=== PATIENT | male | born 1960 | race Caucasian/White ===

== ENCOUNTER 2017-12-30 20:12 | Inpatient (IN) | payer OTHER ==
[2017-12-30 21:18] LABS: % BASOPHILS 0.8 % (0.0-2.0); % EOSINOPHILS 1.9 % (0.0-5.0); % LYMPHOCYTES 18.9 % (20.0-50.0); % MONOCYTES 4.5 % (2.0-10.0); % NEUTROPHILS 73.9 % (40.0-80.0); BASOPHILE ABSOLUTE 0.1 Th/cumm (0-0.2); EOSINOPHILE ABSOLUTE 0.2 Th/cmm (0.1-0.4); HEMATOCRIT 24.8 % (41.0-60); LYMPHOCYTE ABSOLUTE 2.4 Th/cmm (1.5-3.0); MEAN CELL VOLUME 85.7 fl (80-99); MEAN CORPUSCULAR HEMOGLOBIN 27.7 pg (26.0-30.0); MEAN CORPUSCULAR HGB CONC 32.4 pg (28.0-36.0); MEAN PLATELET VOLUME 7.5 fl; MONOCYTE ABSOLUTE 0.6 Th/cmm (0.3-1.0); NEUTROPHILE ABSOLUTE 9.4 Th/cmm (1.8-8.0); PLATELET COUNT 632 Th/cmm (150-400); RED CELL DISTRIBUTION WIDTH 15.6 % (11.5-20.0)
[2017-12-30 21:20] LABS: WHITE BLOOD COUNT 12.7 Th/cmm (4.8-10.8)
[2017-12-30 21:22] LABS: ALLEN TEST Positive; pH 7.44 (7.35-7.45)
[2017-12-30 21:24] LABS: pH 7.44 (7.35-7.45)
[2017-12-30 21:25] LABS: ALLEN TEST Positive
[2017-12-30 21:30] LABS: INR 0.94 (0.5-1.4); PROTHROMBIN TIME (TEST) 9.8 SECONDS (9.5-11.5)
--- NOTE | 2017-12-30 21:48 | ED Physician Chart ---
ED Chief Complaint/HPI - Patient Information Date Seen:: 12/30/17 Time Seen:: 20:30 Chief Complaint:: PNEUMONIA History of Present Illness:: THIS IS A 57 YR OLD MALE SENT FROM A CUSTODIAL WITH A DIAGNOSIS PNEUMONIA FOR MORE DEFINITIVE CARE FOR HIS CONDITION. THE PATIENT HAS BEEN HAVING DIFFICULTY BREATHING WITH INCREASE WEAKNESS. Allergies:: Allergies Allergy/AdvReac Type Severity Reaction Status Date / Time No Known Allergies Allergy Verified 12/30/17 20:39 Vitals:: Vital Signs - 8 hr 12/30/17 20:15 Temp 98.1 F HR 97 RR 20 BP 110/77 O2 Sat % 97 Historian:: Patient Review:: Nurse's Note Reviewed ED Review of Systems - Review of Systems General/Constitutional: No fever, No chills, No weight loss, No weakness, No diaphoresis, No edema, No loss of appetite Skin: No skin lesions, No rash, No bruising Head: No headache, No light-headedness Eyes: No loss of vision, No pain, No diplopia ENT: No earache, No nasal drainage, No sore throat, No tinnitus Neck: No neck pain, No swelling, No thyromegaly, No stiffness, No mass noted Cardio Vascular: No chest pain, No palpitations, No PND, No orthopnea, No edema Pulmonary: SOB, Cough, No sputum, No wheezing GI: No nausea, No vomiting, No diarrhea, No pain, No melena, No hematochezia, No constipation, No hematemesis G/U: No dysuria, No frequency, No hematuria Musculoskeletal: No bone or joint pain, No back pain, No muscle pain Endocrine: No polyuria, No polydipsia Psychiatric: No prior psych history, No depression, No anxiety, No suicidal ideation Hematopoietic: No bruising, No lymphadenopathy Allergic/Immuno: No urticaria, No angioedema Neurological: No syncope, No focal symptoms, No weakness, No paresthesia, No headache, No seizure, No dizziness, No confusion, No vertigo ED Past Medical History - Past Medical History Obtainable: Yes Past Medical History: HTN, DM, Asthma/COPD Family History: None Social History: Non Smoker, No Alcohol, No Drug Use, Care Facility Surgical History: None Psychiatricy History: None Medication: Reviewed Family Medical History - Family Member Mother History Unknown: Yes ED Physical Exam - Physical Examination General/Constitutional: Awake, Well-developed, well-nourished, Alert, No distress, GCS 15, Non-toxic appearing, Ambulatory Head: Atraumatic Eyes: Lids, conjuctiva normal, PERRL, EOMI Skin: Nl inspection, No rash, No skin lesions, No ecchymosis, Well hydrated, No lymphadenopathy Other Skin comments:: CELLULITIS OF THE RIGHT FOOT ENMT: External ears, nose nl, Nasal exam nl, Lips, teeth, gums nl Neck: Nontender, Full ROM w/o pain, No JVD, No nuchal rigidity, No bruit, No mass, No stridor Respiratory: Nl effort/Exclusion, Clear to Auscultation (THERE ARE DECREASED BILATERAL LOWER LUNG SOUNDS.), No Wheeze/Rhonchi/Rales Cardio Vascular: RRR, No murmur, gallop, rubs, NL S1 S2 GI: No tenderness/rebounding/guarding, No organomegaly, No hernia, Normal BS's, Nondistended, No mass/bruits, No McBurney tenderness : No CVA tenderness, NL external genitalia (THERE IS EDEMA OF THE SCROTAL AREA.) Extremities: No tenderness or effusion, Full ROM, normal strength in all extremities, No edema, Normal digits & nails Other Extremities comments:: THE RIGHT IS SWOLLEN AND RED. Neuro/Psych: Alert/oriented, DTR's symmetric, Normal sensory exam, Normal motor strength, Judgement/insight normal, Mood normal, Normal gait, No focal deficits Misc: Normal back, No paraspinal tenderness ED Labs/Radiology/EKG Results - Lab Results Results: Laboratory Tests 12/30/17 12/30/17 12/30/17 20:50 20:50 20:50 WBC 12.7 H RBC 2.90 L Hgb 8.0 L Hct 24.8 L MCV 85.7 MCH 27.7 MCHC Differential 32.4 RDW 15.6 Plt Count 632 H MPV 7.5 Neutrophils % 73.9 Lymphocytes % 18.9 L Monocytes % 4.5 Eosinophils % 1.9 Basophils % 0.8 PT 9.8 INR 0.94 Specimen Source Sample Site pH pCO2 pO2 HCO3 Base Excess O2 Saturation Homero Test Vent Rate Inspired O2 Tidal Volume PEEP Pressure (ins/psv/peep) Critical Value Troponin I 0.15 H* 12/30/17 12/30/17 20:50 21:09 WBC RBC Hgb Hct MCV MCH MCHC Differential RDW Plt Count MPV Neutrophils % Lymphocytes % Monocytes % Eosinophils % Basophils % PT INR Specimen Source Arterial Arterial Sample Site Left Radial Right Radial pH 7.44 7.44 pCO2 48.0 H 46.0 H pO2 57.0 L 71.0 L HCO3 30.4 H 29.6 H Base Excess 7.3 H 6.1 H O2 Saturation 90.0 L 95.0 Homero Test Positive Positive Vent Rate NA NA Inspired O2 21% 28 Tidal Volume NA NA PEEP NA NA Pressure (ins/psv/peep) NA NA Critical Value HSTEHNO HSTEHNO Troponin I - EKG Interpretations EKG Time:: 20:39 Rate & Rhythm: RATE= 94, SINUS Emerson: RIGHT AXIS Intervals: NO ECTOPY SEEN ED Assessment - Assessment General Assessment: PNEUMONIA ANEMIA DIABETES MELLITUS INFECTED RIGHT FOOT ED Septic Shock - . Is Septic Shock (SBP<90, OR Lactate>4 mmol\L) present?: No - <6hrs of presentation: Vital Signs: Vital Signs - 8 hr 12/30/17 20:15 Temp 98.1 F HR 97 RR 20 BP 110/77 O2 Sat % 97 ED Reassessment (Disposition) - Reassessment Reassessment Condition:: Unchanged - Diagnosis Diagnosis:: PNEUMONIA ANEMIA ELEVATED TROPONIN - Patient Disposition Discharge/Transfer:: Acute Care w/in this hosp Admitted to:: Telemetry Admitting Medical Physician:: Lazaro Espinal Condition at Disposition:: Unchanged ED Discharge Plan - Patient Disposition Admit/Discharge/Transfer: Acute Care w/in this hosp Condition at Disposition: Unchanged
[2017-12-30 21:50] LABS: ALB/GLOB RATIO 0.6 (1.0-1.8); ALBUMIN 2.7 gm/dL (4.2-5.5); ALKALINE PHOSPHATASE 278 U/L (34-104); ANION GAP 10.6 (7.0-16.0); BILIRUBIN,TOTAL 0.2 mg/dL (0.3-1.0); BUN - UREA NITROGEN 34 mg/dL (7-25); CALCIUM SERUM 8.7 mg/dL (8.6-10.3); CHLORIDE 102 mEq/L (98-107); GFR AFRICAN-AMERICAN > 60.0 ml/min (>90); GFR NON AFRICAN-AMERICAN > 60.0 ml/min; GLUCOSE 215 mg/dL (70-105); POTASSIUM SERUM 4.6 mEq/L (3.5-5.1); SGOT 16 U/L (13-39); SGPT/ALT 68 U/L (7-52); SODIUM SERUM 138 mEq/L (136-145); TOTAL PROTEIN,SERUM 7.2 gm/dL (6.0-8.3)
[2017-12-30] MEDS ORDERED: Azithromycin 500 MG in Sodium Chloride 0.9% 250 ML IV ONE (22:04)
[2017-12-30] MEDS ORDERED: cefTRIAXone 1 GM in Sodium Chloride 0.9% 50 ML IV ONE (22:38)
[2017-12-30] MEDS ORDERED: IOHEXOL 350mgI/mL 100mL Bottle IVP ONE (23:23)
[2017-12-31] MEDS: Albuterol/Ipratropium Neb 3 ML AERS HHN SCH ×3 (07:37→19:07)
[2017-12-31] MEDS ORDERED: Albuterol/Ipratropium Neb 3 ML AERS HHN PRN (07:47)
[2017-12-31] MEDS: INSULIN ASPART SLIDING SCALE 100 UNITS/ML UNIT SUBQ SCH ×4 (08:30→21:16)
[2017-12-31] MEDS ORDERED: Non-Formulary Item 1 EA (Amino Acids/Protein Hydrolys [Pro-Stat Awc Liquid] 30 ML) PO SCH (09:00)
--- NOTE | 2017-12-31 09:00 | History & Physical ---
ADMIT DATE: 12/31/2017 HISTORY OF PRESENT ILLNESS: A 57-year-old presented from [facility] with chief complaint of shortness of breath and bilateral lower extremity edema. He has been short of breath for the last several days. He was started on Lasix in [facility] and while he was on Lasix 40 mg b.i.d., the edema slowly started to resolve; however the patient started to have shortness of breath with wet cough, so he is transferred to [facility]. PAST MEDICAL HISTORY: Asthma, diabetes, diabetic neuropathy, GERD, and muscle weakness. PAST SURGICAL HISTORY: None. FAMILY HISTORY: Unremarkable. SOCIAL HISTORY: Denies tobacco, drugs, or alcohol. Currently lives in [facility]. ALLERGIES: No known allergies. REVIEW OF SYSTEMS: CONSTITUTIONAL: Denies fevers, chills, or sweats. HEENT: Denies decreased vision, difficulty swallowing, or decreased hearing. RESPIRATORY: Admits to a wet cough with shortness of breath and wheezing. CARDIOVASCULAR: Denies chest pain. Admits to shortness of breath. Denies palpitations. GASTROINTESTINAL: Denies abdominal pain, nausea, or vomiting. GENITOURINARY: Denies dysuria, frequency, or urgency. MUSCULOSKELETAL: Denies low back pain. Admits to weakness with neuropathic pain. SKIN: Denies rashes or open wounds. ASSESSMENT AND PLAN: Pneumonia, gastroesophageal reflux disease, diabetes, diabetic neuropathy, anemia of chronic illness, aspiration pneumonia, right foot diabetic ulceration, elevated troponin, possible secondary to acute coronary syndrome, myocardial infarction ruled out. PLAN: Admit to the ICU, IV Zosyn has been started, pain control. Serial troponins. Cardio has been consulted. Bronchodilators as needed. Continue with Lasix, gabapentin, judicious fluids, Levemir, diabetic diet, and Protonix for GERD. JOB# [id number]
--- NOTE | 2017-12-31 09:01 | Diagnostic Imaging Report ---
CT scan of the chest without intravenous contrast HISTORY: Cough Total DLP equals 219 CTDI equals 5.9 Axial sections were obtained from a level above the clavicles down to the level below the diaphragm. Evaluation of the hilar and vascular structures limited due to the absence of intravenous contrast. Heart size is somewhat generous. Coronary artery and at the splenic vascular calcification noted. There are moderate bilateral pleural effusions. Pulmonary parenchymal changes noted in the right and left lower lobes consistent with consolidation and/or atelectasis. Hazy ill-defined infiltrate noted within the upper lobes bilaterally. IMPRESSION: 1. Bilateral pleural effusions 2. Bilateral lower lobe parenchymal changes consistent with consolidation and/or atelectasis 3. Additional bilateral predominate upper lobe infiltrates. Findings may reflect changes associated with a degree of congestive heart failure. Superimposed pneumonia cannot be excluded. Clinical correlation is needed.
--- NOTE | 2017-12-31 09:03 | Diagnostic Imaging Report ---
CT angiogram of the chest with intravenous contrast (CTA) HISTORY: Shortness of breath, elevated d-dimer Following administration of intravenous contrast, axial sections were obtained from a level above the clavicles down to level below the diaphragm. The exam is compared with the prior noncontrast CT scan performed earlier in the day. The heart size is generous. There is normal opacification the main, right, and left pulmonary arteries. No intraluminal filling defects are seen. Specifically, no evidence of pulmonary embolism. Again noted are moderate to large bilateral pleural effusions. Pulmonary parenchymal changes noted within the lower lobes of the lungs consistent with consolidation and/or atelectasis. No change in previously reported bilateral common the upper lobe infiltrates. IMPRESSION: 1. No evidence of pulmonary embolus 2. Generous heart size of bilateral pleural effusions. Findings may be associated with a degree of congestive heart failure 3. Bilateral probably upper lobe infiltrates. Pneumonia cannot be excluded.
--- NOTE | 2017-12-31 09:12 | Diagnostic Imaging Report ---
Portable chest x-ray HISTORY: Shortness of breath The heart is enlarged. There are small bilateral pleural effusions. Pulmonary vascular redistribution consistent cardiac decompensation noted. Bilateral infiltrates probably associated with pulmonary edema. Underlying pneumonia cannot be excluded. IMPRESSION: 1. Cardiomegaly with small bilateral pleural effusions and bilateral infiltrates. The changes suggest congestive heart failure with a degree of pulmonary edema. Underlying pneumonia cannot be excluded. Clinical correlation is needed.
[2017-12-31] MEDS: Potassium Chloride 20 mEq ER Tab PO SCH (09:14)
[2017-12-31] MEDS: Multivitamin w/ Minerals Tab PO SCH (09:15)
[2017-12-31] MEDS: Insulin Detemir 100 units/mL 10mL Vial SUBQ SCH ×2 (09:24→17:18)
[2017-12-31] MEDS: Morphine Sulfate 4 mg/mL 1mL Syr IVP PRN ×2 (11:22→20:30)
[2017-12-31] MEDS: Pantoprazole 40 mg EC Tab PO SCH (11:29)
[2017-12-31] MEDS ORDERED: Albuterol/Ipratropium Neb 3 ML AERS HHN SCH (13:00)
[2017-12-31 14:29] LABS: INR 0.98 (0.5-1.4); PROTHROMBIN TIME (TEST) 10.2 SECONDS (9.5-11.5)
[2017-12-31] MEDS ORDERED: Enoxaparin 40 mg/0.4 mL 0.4mL Syr SUBQ SCH (16:00)
[2017-12-31] MEDS: Atorvastatin Calcium 10 MG TAB PO SCH (17:01)
[2017-12-31 17:59] LABS: A1C % 10.2 % (4.0-6.0)
[2017-12-31] MEDS ORDERED: Budesonide 0.5 Mg/2 mL Ud HHN SCH (19:00)
--- NOTE | 2017-12-31 22:37 | Consultation ---
DATE OF CONSULTATION: 12/31/2017 REASON FOR CONSULTATION: Abnormal chest x-ray. CONSULT NOTE: This is a 57-year-old gentleman who basically was admitted up here because of shortness of breath and some swelling over the legs etc. The patient basically had some nail injury in the right foot and subsequently the patient was admitted to the [facility] where some surgical maneuver was done. Subsequently, the patient started having more pain on the right leg and more swelling. Subsequently, the patient started having more coughing with some very minimal sputum production, hence the patient was transferred up here for further care and necessary treatment. The patient has some sputum production, no hemoptysis, some wheezing. Denied of any chills or denied of any pleuritic chest pain, etc. Has lost some weight, but quantified. PAST MEDICAL HISTORY: History of severe weakness, history of asthma, history of diabetic neuropathy, history of gastroesophageal reflux disease. SOCIAL HISTORY: Smoking in the past. Has not smoked for the last couple of years. ALLERGIC HISTORY: None. PHYSICAL EXAMINATION: GENERAL: This is a middle-aged looking gentleman, awake, alert, oriented, not in any acute distress. VITAL SIGNS: The patient's recorded vitals: The patient is afebrile, blood pressure 110/70, saturation is high 90s on 4 liters of oxygen. HEENT: Examination of the head is essentially unremarkable. Pupils appear to be equal and reacting to light. Conjunctivae are slightly pallor. Oral cavity shows small oropharyngeal opening. NECK: No nodes in the neck could be palpated. Neck appears to be short. CHEST: Shows marked diminished air entry, mostly at the bases. ABDOMEN: Slightly distended, otherwise unremarkable. EXTREMITIES: Right leg around the ankle is a dressing quite from the swelling with some tenderness. Left leg is still swollen, but not as tender as on the right one and appears to be very poor pulsations. LABORATORY DATA: White count is 12.7, hemoglobin is 8 and the patient's D-dimer is 1480 and blood gases shows pH of 7.4, pCO2 of 41 on 28% of oxygen. Electrolytes: BUN is 34, sugar is 125 and the patient's troponin is borderline high and patient's other laboratory studies. CT of the abdomen report is pending. Discussed with the surgery technician who is doing ultrasound. There is a deep vein thrombosis in the right femoral may be some ____, but does not seen on the left leg. CT angio shows no pulmonary embolism, but appears to be bilateral patchy infiltrate in both upper lobes with moderate to large size effusion bilaterally and blood gases shows pCO2 of 46, pO2 of 71 on 2 liters. IMPRESSION: The patient has multisystem multi complex issue: 1. Bilateral pneumonia, exact nature of which is not clear. 2. Bilateral effusion, exact source is not clear, but most likely this is a third spacing either of cardiac or significant related to the renal failure or protein losing nephropathy. 3. Right-sided deep venous thrombosis, previous history of nail piercing injury on the right side. 4. History of diabetic neuropathy complete care with some suggestion of sleep apnea syndrome. PLANS AND SUGGESTIONS: 1. We will consider appropriate sputum culture, broad spectrum antibiotic. We will start the patient on heparin for now. Consideration for IV. 2. Await for 2D echo. If necessary, consider thoracentesis and go from there. JOB# [id number]
[2018-01-01] MEDS: Morphine Sulfate 4 mg/mL 1mL Syr IVP PRN ×3 (02:27→14:50)
--- NOTE | 2018-01-01 04:14 | Consultation ---
DATE OF CONSULTATION: 12/31/2017 HISTORY OF PRESENT ILLNESS: This 57-year-old male was seen and examined. The patient was admitted through the Emergency Room and was brought to the Emergency Room with history of shortness of breath, pain, and redness of the right foot following an injury. The patient was evaluated in the Emergency Room and then admitted. He was found to have an elevated troponin level, first troponin 0.23 and 0.21. He was also found on venous Doppler that he had DVT of the right lower extremity. He had a CT of the chest done, which revealed [id number] pleural effusion bilateral. He complains of pain in the foot. There is no history of diabetes or hypertension. The patient a very poor historian. PAST MEDICAL HISTORY: Not much available from the patient. FAMILY HISTORY: Not available. The patient states there is no family. SOCIAL HISTORY: The patient denies smoking or drinking. PHYSICAL EXAMINATION: VITAL SIGNS: Heart rate was 90, blood pressure was about 100/50. SKIN: Normal. HEAD: Normocephalic. EYES: Conjunctivae are pink. There is no icterus in the eyes. Pupils are reactive to light. NECK: There is no increased jugular venous distention. No thyromegaly, no lymphadenopathy. Carotids equal in both sides. CHEST: Bilaterally symmetrical, moves well with respiration. Respiratory movements equal in both sides. Trachea is central. There is note to percussion. Diminished breath sounds bilaterally. CARDIOVASCULAR SYSTEM: PMI not well localized. No pulsation, no thrill. No parasternal heave. S1 normal, S2 physiologic. There is no S3, no rub. ABDOMEN: Soft. No tenderness or rigidity. No guarding, no organomegaly. Bowel sounds are normal. EXTREMITIES: The patient has bilateral edema, redness of the right ankle and right foot. LABORATORY AND DIAGNOSTIC DATA: EKG showed sinus rhythm, loss of R-wave from V1-V3, possible old anterior injury as mentioned above. Troponin was 0.23. Protime was 26.8, INR 0.98. pH was 7.44, pCO2 of 48, pO2 of 57. WBC 12.7, hemoglobin 8, hematocrit 24.8, platelet count was 632. Lactic acid 1.92, sodium 138, potassium 4.3, chloride 102, CO2 of 30, glucose was 215, BUN 34, creatinine 1.0. Liver function tests were high, SGPT was 68, alkaline phosphatase 278. IMPRESSION AND RECOMMENDATIONS: Shortness of breath; [id number] pleural effusions, greater on the right side; possibility of CHF; pain and redness of the right foot and right ankle; cellulitis; elevated troponin level; possibility of non-Q-wave SC exists, non-ST segment elevation SC. EKG shows possible old SC. DVT of right leg, anemia, thrombocytosis. Suggest to continue present management. Suggest to continue cardiac monitoring in ICU, to repeat EKG in a.m. We will also get echocardiogram to evaluate left ventricular function and valvular structure and lipid profile and TSH. In the meantime, the patient should be on some beta-tereza, statins, aspirin, Lovenox for possible acute SC and DVT, and Protonix. Discussed with RN. We will follow with you as needed. JOB# [id number]
[2018-01-01 05:43] LABS: MEAN CORPUSCULAR HEMOGLOBIN 27.7 pg (26.0-30.0); RED CELL DISTRIBUTION WIDTH 15.9 % (11.5-20.0)
[2018-01-01 05:50] LABS: MEAN CELL VOLUME 85.8 fl (80-99); MEAN CORPUSCULAR HGB CONC 32.3 pg (28.0-36.0); MEAN PLATELET VOLUME 7.3 fl; PLATELET COUNT 613 Th/cmm (150-400); RED BLOOD COUNT 2.76 Mil/cmm (4.30-5.70); WHITE BLOOD COUNT 9.1 Th/cmm (4.8-10.8)
[2018-01-01 05:52] LABS: INR 0.99 (0.5-1.4); PROTHROMBIN TIME (TEST) 10.3 SECONDS (9.5-11.5)
[2018-01-01 05:53] LABS: HEMATOCRIT 23.7 % (41.0-60); HEMOGLOBIN 7.6 gm/dL (12-16)
[2018-01-01 05:54] LABS: MANUAL DIFF REQUIRED? YES
[2018-01-01 05:56] LABS: ALB/GLOB RATIO 0.6 (1.0-1.8); ALBUMIN 2.6 gm/dL (4.2-5.5); BILIRUBIN,TOTAL 0.2 mg/dL (0.3-1.0); MAGNESIUM 2.1 mg/dL (1.9-2.7); TOTAL PROTEIN,SERUM 6.9 gm/dL (6.0-8.3)
[2018-01-01 06:07] LABS: BILIRUBIN,DIRECT 0.09 mg/dL (0.0-0.2)
[2018-01-01 06:43] LABS: BAND NEUTROPHILE 1 % (0-10); BASOPHIL 1 % (0-3); EOSINOPHIL 2 % (0-5); HYPOCHROMIA 1+; LYMPHOCYTE 25 % (20-50); MONOCYTE 4 % (2-10); NEUTROPHILS 67 % (40-80); PLATELET ESTIMATE INCREASED PLATELETS (NORMAL); TOTAL CELLS COUNTED 100
[2018-01-01 06:44] LABS: ANISOCYTOSIS 1+
[2018-01-01 07:39] LABS: ALB/GLOB RATIO 0.6 (1.0-1.8); ALBUMIN 2.6 gm/dL (4.2-5.5); ALKALINE PHOSPHATASE 223 U/L (34-104); ANION GAP 10.9 (7.0-16.0); BILIRUBIN,TOTAL 0.2 mg/dL (0.3-1.0); BUN - UREA NITROGEN 33 mg/dL (7-25); CALCIUM SERUM 8.8 mg/dL (8.6-10.3); CARBON DIOXIDE 29.5 mEq/L (21.0-31.0); CHLORIDE 102 mEq/L (98-107); CREATININE - SERUM 1.1 mg/dL (0.7-1.3); GFR AFRICAN-AMERICAN > 60.0 ml/min (>90); GFR NON AFRICAN-AMERICAN > 60.0 ml/min; GLUCOSE 101 mg/dL (70-105); POTASSIUM SERUM 4.4 mEq/L (3.5-5.1); SGOT 13 U/L (13-39); SGPT/ALT 47 U/L (7-52); SODIUM SERUM 138 mEq/L (136-145)
[2018-01-01] MEDS: INSULIN ASPART SLIDING SCALE 100 UNITS/ML UNIT SUBQ SCH ×3 (07:52→16:46)
[2018-01-01] MEDS: Pantoprazole 40 mg EC Tab PO SCH (07:53)
[2018-01-01] MEDS: Albuterol/Ipratropium Neb 3 ML AERS HHN SCH ×3 (08:16→14:48)
[2018-01-01] MEDS ORDERED: Probiotic Screen MC PRN (08:30)
--- NOTE | 2018-01-01 08:41 | Diagnostic Imaging Report ---
Portable chest x-ray HISTORY: Shortness of breath Compared with prior exam of December 31, 2017, the heart remains enlarged. There are persistent bilateral pleural effusions and bilateral infiltrates. The combination suggests changes of congestive heart failure with pulmonary edema. Underlying pneumonia cannot be excluded. Clinical relation is needed. IMPRESSION: 1. Cardiomegaly with findings consistent with congestive heart failure and pulmonary edema. Underlying pneumonia cannot be excluded. Clinical correlation is needed.
--- NOTE | 2018-01-01 08:55 | Diagnostic Imaging Report ---
Right lower extremity Doppler arterial ultrasound exam The: Cutaneous ulcers, diabetes Sonographic sector images were obtained through the arterial systems of the right leg. Associated Doppler data was obtained. The exam demonstrates triphasic waveforms within the right common femoral artery. Abnormal monophasic waveforms are noted within the proximal and midportion of the right superficial femoral artery. Triphasic waveforms noted in the distal superficial femoral and popliteal artery regions. Abnormal monophasic waveforms noted within the right anterior, posterior tibial arteries and dorsalis pedis arteries. Decreased velocity noted within the mid superficial femoral artery and with in the dorsalis pedis artery region. The ankle-brachial index is normal (1.1). Sonographic images demonstrate mild to moderate diffuse atherosclerotic changes. No occlusion identified. IMPRESSION: 1. Evidence of mild to moderate diffuse atherosclerotic changes. No dominga occlusion..
[2018-01-01] MEDS ORDERED: Lactobacillus Rhamnosus GG 15 Billion CFU CAP.SPRINK PO SCH (09:00)
--- NOTE | 2018-01-01 09:02 | Diagnostic Imaging Report ---
Bilateral lower extremity Doppler venous ultrasound exam HISTORY: Pain/swelling Sonographic sector images were obtained through the deep venous systems of both legs. Associated Doppler data was obtained. The exam demonstrates patency of the common femoral, superficial femoral, popliteal, and posterior tibial veins bilaterally. Specifically, no thrombus is seen. There are normal compressibility and augmentation responses. IMPRESSION: Negative exam for deep vein thrombophlebitis.
[2018-01-01 09:21] LABS: ALLEN TEST Positive; pH 7.42 (7.35-7.45)
[2018-01-01] MEDS: Atorvastatin Calcium 10 MG TAB PO SCH (09:34)
[2018-01-01] MEDS: Multivitamin w/ Minerals Tab PO SCH (09:36)
[2018-01-01] MEDS: Potassium Chloride 20 mEq ER Tab PO SCH (09:36)
[2018-01-01] MEDS: Enoxaparin 60 mg/0.6 mL 0.6mL Syr SUBQ SCH ×2 (09:37→18:06)
[2018-01-01] MEDS: Insulin Detemir 100 units/mL 10mL Vial SUBQ SCH ×2 (09:40→18:30)
--- NOTE | 2018-01-02 02:32 | Progress Notes ---
DATE: 01/01/2018 SUBJECTIVE: The patient is resting comfortably in bed. He does not appear to be in any acute pain or distress. The patient is upset because he would like to use a bedside commode rather than use the bedpan which he is now allowed to do. The patient was admitted as tele, but was placed in the ICU due to nontele ____ available, the patient will be transferred in the hallway. Chest x-ray revealed pneumonia and congestive heart failure. Metoprolol was discontinued. Carvedilol was started. The cardiac echo was ordered, and the patient was started on IV Lasix, judicious fluids. OBJECTIVE: VITAL SIGNS: Pulse 98, respirations 16, blood pressure 110/76, temperature 98.6. GENERAL: NAD. HEENT: PERRLA, EOMI. NECK: Supple. Trachea midline. CARDIOVASCULAR: Regular rate and rhythm. RESPIRATORY: Decreased breath sounds with rales and intermittent rhonchi. HEART: Regular rate and rhythm. ABDOMEN: Soft, nontender, nondistended. Bowel sounds positive in all 4 quadrants. SKIN: Right foot cellulitis with ulceration and clear drainage, +2 edema. Scrotal edema is present. PSYCHIATRIC: No psychosis or hallucinations. LABORATORY DATA: White blood cell count 9.1, hemoglobin 7.6, pO2 of 44. ASSESSMENT AND PLAN: Acute respiratory failure secondary to CHF exacerbation, possible ACS ____ exacerbation, pneumonia, GERD, diabetes, diabetic neuropathy, anemia of chronic illness, right foot diabetic ulceration with cellulitis. Elevated troponins, possibly secondary to NSTEMI, ACS rule out. Cardiology evaluated the patient and placed on Lovenox due to possible acute AR and DVT. Ultrasound revealed no DVT. Continue Protonix for GERD. Metoprolol tartrate was changed to carvedilol. Continue statin and aspirin. The patient will be moved to telemetry. Continue IV antibiotics due to the pneumonia as well as the right foot cellulitis. Culture for the right foot is still pending. JOB# [id number]
--- NOTE | 2018-01-02 02:54 | Progress Notes ---
DATE: 01/01/2018 PULMONARY PROGRESS NOTE PROBLEM LIST: 1. Bilateral effusion. 2. Bilateral upper lobe infiltrate. 3. Underlying diabetes mellitus. 4. History of right-sided injury, nil. 5. Significant anasarca. SYMPTOMS: Nil, except for generalized chest discomfort. He has complained shortness of breath, but no respiratory distress, etc. PHYSICAL EXAMINATION: VITAL SIGNS: T-max 97.1, blood pressure 109/68, saturation is 96% on room air. LABORATORY DATA: The patient's chest x-ray shows bilateral effusion, though very hard to visualize infiltrate. ASSESSMENT: The part of the effusion may be related to a third spacing because of low albumin and generalized anasarca. PLANS AND SUGGESTIONS: Continue anticoagulation. Continue inhalation treatment. Discussed with the patient to have a high-protein diet and see how he does in the next few days' time and go from there. JOB# [id number]
[2018-01-04 02:12] LABS: T3 FREE 2.1 pg/mL (2.0-4.4); T4 FREE 0.97 ng/dL (0.82-1.77)
--- NOTE | 2018-01-04 19:02 | Cardiology ---
12/31/[address] Espinal. PROCEDURE: Echocardiogram. M-MODE ECHOCARDIOGRAM: Mitral valve, anterior leaflet of mitral valve shows decreased excursion, EF velocity. Posterior leaflet of the mitral valve shows decreased excursion. Left ventricular posterior wall shows increased thickness, decreased excursion. Interventricular septum shows increased thickness, decreased excursion, ejection fraction 25%. Left atrium enlarged at 4.1 cm. Aortic root shows normal dimension, normal excursion of aortic leaflets. CONCLUSION: Cardiomyopathy, ejection fraction 25%, left atrial enlargement. 2D ECHO: Long axis view showed enlarged left ventricular cavity with decreased ejection fraction. Mitral valve shows decreased excursion. Left atrium enlarged. Aortic root shows normal dimension, normal excursion of aortic leaflets. Short axis view of mitral valve normal. Short axis view of aortic valve normal. Apical four chamber view shows enlarged left ventricular cavity with decreased ejection fraction 25%. Left atrium enlarged. Right ventricular cavity normal, and right atrial enlargement. CONCLUSION: Left atrial enlargement, right atrial enlargement, ejection fraction 25%. Doppler study shows mild mitral regurgitation, mild tricuspid regurgitation, mild pulmonary regurgitation. Right ventricular systolic pressure 40 mmHg. JOB# [id number]
--- NOTE | 2018-01-05 05:24 | Discharge Summary ---
DATE OF DISCHARGE: 01/02/2018 ADMITTING DIAGNOSES: Pneumonia; gastroesophageal reflux disease; diabetes; diabetic neuropathy; anemia of chronic illness; aspiration pneumonia; right foot diabetic ulceration; elevated troponin possibly secondary to acute coronary syndrome; myocardial infarction, rule out; acute respiratory failure; and possible ____ exacerbation. DISCHARGE DIAGNOSES: Cardiopulmonary arrest followed by pneumonia, ____ exacerbation, gastroesophageal reflux disease, diabetes, diabetic neuropathy, anemia, right foot ulceration, and elevated troponins possibly secondary to acute coronary syndrome. HOSPITAL COURSE: A 57-year-old male presented to [facility] with a chief complaint of shortness of breath and bilateral lower extremity edema. The patient's blood pressure was low, so he was admitted to the ICU. The patient was stabilized with IV fluids and his blood pressure stabilized. He was started on Lasix due to bilateral lower extremity edema as well as scrotal edema. An echocardiogram was performed and revealed that the patient had cardiomyopathy as well as congestive heart failure. Cardiology was consulted and started the patient on Lovenox due to elevated troponins. Pulmonary was consulted due to the shortness of breath, pulmonary edema, and pneumonia. He was started on antibiotics for the pneumonia as well as he had a right diabetic ulceration on the right lower extremity, which was ulcerated with surrounding erythema and drainage. A culture was taken. The patient's shortness of breath continued to worsen despite supplemental oxygen, bronchodilators, and steroids. The patient ended up expiring from cardiopulmonary arrest. Medications were reviewed and reconciled. Vital signs were none because the patient . DISPOSITION: Cardiopulmonary arrest. No followup at this time. PSYCHIATRIC# [id number]
== END 2018-01-01 21:00 | disposition expired | DRG 720 ==
LOC: ER 20:12 → ICU 22:10 → TELE 22:10
PROVIDERS: ADMIT General Practice; ATTEND General Practice
DX: A41.9 Sepsis, unspecified organism (principal); J96.01 Acute respiratory failure with hypoxia; J69.0 Pneumonitis due to inhalation of food and vomit; J90 Pleural effusion, not elsewhere classified; I46.9 Cardiac arrest, cause unspecified; E11.40 Type 2 diabetes mellitus with diabetic neuropathy, unspecified; I11.0 Hypertensive heart disease with heart failure; D47.3 Essential (hemorrhagic) thrombocythemia; I50.9 Heart failure, unspecified; D63.8 Anemia in other chronic diseases classified elsewhere; E11.621 Type 2 diabetes mellitus with foot ulcer; L03.115 Cellulitis of right lower limb; L97.519 Non-pressure chronic ulcer of other part of right foot with unspecified severity; D64.9 Anemia, unspecified; J45.909 Unspecified asthma, uncomplicated; K21.9 Gastro-esophageal reflux disease without esophagitis
CPT/HCPCS: 36415-UA; 36600-90; 71045-TC; 71250-TC; 71275-TC; 80053-TC; 80061-TC; 80076-TC; 82140-TC; 82803-TC; 82948-90; 83036-90; 83605; 83735-TC; 84439-90; 84443-TC; 84479-90; 84484-TC; 85007-TC; 85025-TC; 85027-TC; 85379-TC; 85610-TC; 85730-TC; 86850-TC; 86900-TC; 86901-TC; 87070-90; 87075-90; 87205-90; 93005; 93925-TC; 93970-TC-50; 96374; J0456; J0696; J1650; J1815; J1940; J2060; J2543; J7030; Q9967; Z7610